=== PATIENT | female | born 1995 | race Two or more races ===

== ENCOUNTER 2018-03-10 21:42 | Emergency (ER) | payer SELFPAY ==
[~2018-03-10] VITALS: Ht 162.6 cm; Wt 72.6 kg
[~2018-03-10 21:42] MED LIST: LABE100T5 PO; PREN1TAB26 PO
[2018-03-10] MEDS ORDERED: AMOX500C PO (22:18)
--- NOTE | 2018-03-10 22:18 | PHYS DOC ---
Past Medical History Past Medical History: No Pertinent History Past Surgical History: No Surgical History Alcohol Use: None Drug Use: None Adult General Chief Complaint Chief Complaint: EARACHE/EAR PAIN [place] [employer] HPI Patient is a 23-year-old female who presents with complaint of left ear pain and muffled hearing for the last 3 days. Patient denies any fever, cough, shortness of breath, nausea or vomiting. She rates pain as being moderate. There are no exacerbating or alleviating factors. Review of Systems Review of Systems Constitutional: Denies fever or chills [] HENT: The left ear pain[] Respiratory: Denies cough or shortness of breath [] Cardiovascular: No additional information not addressed in HPI [] Allergies Allergies Allergies Coded Allergies Type Severity Reaction Last Updated Verified No Known Drug Allergies 03/17/13 No Physical Exam Physical Exam Constitutional: Well developed, well nourished, no acute distress, non-toxic appearance. [] HENT: Normocephalic, atraumatic, bilateral external ears normal, left TM is dull and erythematous. [] Neck: Normal range of motion, no tenderness, supple, no stridor. [] Cardiovascular: Regular rate and rhythm[] Lungs & Thorax: Bilateral breath sounds clear to auscultation [] EKG EKG [] Radiology/Procedures Radiology/Procedures [] Course & Med Decision Making Course & Med Decision Making Pertinent Labs and Imaging studies reviewed. (See chart for details) [] Dragon Disclaimer Dragon Disclaimer This electronic medical record was generated, in whole or in part, using a voice recognition dictation system. Departure Departure Impression: Primary Impression: Left otitis media Disposition: 01 HOME, SELF-CARE Condition: STABLE Referrals: NO PCP (PCP) Patient Instructions: Otitis Media, Adult Scripts Amoxicillin (AMOXICILLIN) 500 Mg Capsule 2 CAP PO BID, #[id number] CAP Prov: ADALI KING Jr. DO 03/10/18 Problem Qualifiers Primary Impression: Left otitis media Otitis media type: unspecified Qualified Codes: H66.92 - Otitis media, unspecified, left ear ADALI KING Jr. DO Mar 10, 2018 22:18
[2018-03-10] MEDS ORDERED: AMOXICILLIN/K CLAV 875/125MG TABLET. PO ONE (22:30)
[2018-03-10 22:31] VITALS: BP 134/80
== END 2018-03-10 22:45 | disposition home or self-care (01) ==
LOC: ER 21:42
DX: H66.92 Otitis media, unspecified, left ear (principal)
CPT/HCPCS: 99283